=== PATIENT | male | born 1970 | race Caucasian/White ===

== ENCOUNTER 2025-02-11 10:11 | Inpatient (IN) | payer OTHER ==
[2025-02-11] VITALS (8 sets, daily range): BP systolic 122–168; BP diastolic 56–97; TEMP 97.5–98.2; O2SAT 96–99
[~2025-02-11] VITALS: Ht 175.3 cm; Wt 97.0 kg
[2025-02-11 10:48] LABS: BASO # 0.2 10^3/uL (0.0-0.2); BASO % 0.9 % (0.0-1.0); EOS # 0.0 10^3/uL (0.0-0.5); EOS % 0.1 % (0.0-3.0); LYMPH # 1.9 10^3/uL (1.5-5.0); LYMPH % 10.0 % (24.0-44.0); MONO # 0.9 10^3/uL (0.0-0.8); MONO % 4.5 % (2.0-8.0); NEUTROPHILS # 15.6 10^3/uL (1.5-8.5); NEUTROPHILS % 80.6 % (36.0-66.0); PLATELET COUNT, AUTOMATED 361 10^3/uL (150-450)
[2025-02-11 11:04] LABS: CK-MB VALUE MASS 4.8 NG/ML (<3.6)
[2025-02-11 11:07] LABS: ALT/SGPT 21 U/L (7.0-40); AST/SGOT 19 U/L (<34); CALCIUM LEVEL 10.3 MG/DL (8.5-10.1); CARBON DIOXIDE LEVEL < 10.0 MMOL/L (20-31); CHLORIDE LEVEL 99 MMOL/L (98-107); CPK CREATINE PHOSPHOKINASE 110 U/L (46-171); CREATININE FOR GFR 1.24 MG/DL (0.70-1.30); GLOMERULAR FILTRATION RATE 70.0 (>56); MB/CK RELATIVE INDEX 4.36 (< OR =4); POTASSIUM SERUM 4.6 MMOL/L (3.5-5.1); SODIUM LEVEL 138 MMOL/L (136-145)
[2025-02-11] MEDS: NS (Normal Saline) 0.9% 1,000 ML IV ONE (11:28)
[2025-02-11] MEDS: ONDANSETRON 4MG/2ML VIAL IV ONE (11:33)
[2025-02-11 11:43] LABS: VENOUS BASE EXCESS -25.5 (-2.0-2.0); VENOUS HCO3 5.0 MMOL/L (23.0-27.0); VENOUS O2 SATURATION 80.1 % (60.0-80.0); VENOUS PARTIAL PRESSURE CO2 22.0 mmHg (38.0-50.0); VENOUS PARTIAL PRESSURE O2 51.8 mmHg (30.0-50.0); VENOUS PH 6.971 UNITS (7.330-7.430); VENOUS STANDARD HCO3 7.0 MMOL/L; VENOUS TOTAL CO2 5.6 MMOL/L (24.0-28.0)
[2025-02-11 11:53] LABS: ACETONE/KETONE > 4.50 MMOL/L (0.02-0.27)
[2025-02-11] MEDS ORDERED: INSULIN IV RATE CHANGE DOCUMENTATION ML/HR XX SCH (12:10)
[2025-02-11 12:19] LABS: ESTIMATED AVERAGE GLUCOSE 329.0 MG/DL (60-110)
[2025-02-11] MEDS: INSULIN REGULAR IN 0.9 % NACL 100 UNIT in IV 1 EA IV SCH ×2 (12:20→20:04)
[2025-02-11] MEDS ORDERED: KCL 40MEQ IN D5/NS 1000ML 1,000 ML IV SCH (12:50)
[2025-02-11] MEDS: LR 1,000 ML IV ONE (13:38)
[2025-02-11] MEDS: INSULIN IV RATE CHANGE DOCUMENTATION ML/HR XX SCH (13:45)
[2025-02-11] MEDS: ONDANSETRON 4MG/2ML VIAL IV PRN (13:50)
[2025-02-11] MEDS ORDERED: XARE20TA PO (14:09)
[2025-02-11] MEDS ORDERED: ERGO500029 PO (14:09)
[2025-02-11] MEDS ORDERED: METF10004 PO (14:09)
[2025-02-11] MEDS ORDERED: ATOR40TA75 PO (14:09)
[2025-02-11] MEDS ORDERED: BUPR-766 PO (14:09)
[2025-02-11] MEDS ORDERED: EZET10TA57 PO (14:09)
[2025-02-11] MEDS ORDERED: JARD1TAB3 PO (14:09)
[2025-02-11] MEDS ORDERED: AMLO1TAB25 PO (14:09)
[2025-02-11] MEDS ORDERED: HOME MED LIST COMPLETE! XX SCH (14:15)
[2025-02-11] MEDS: KCL 40MEQ IN D5/NS 1000ML 1,000 ML IV SCH (14:57)
[2025-02-11] MEDS: ACETAMINOPHEN *IV* 1,000 MG in IV 1 EA IV ONE (15:14)
[2025-02-11 16:52] LABS: CALCIUM LEVEL 8.5 MG/DL (8.5-10.1); CARBON DIOXIDE LEVEL < 10.0 MMOL/L (20-31); CHLORIDE LEVEL 110 MMOL/L (98-107); CHOLESTEROL LEVEL 271 MG/DL (<200); CHOLESTEROL RISK RATIO 5.42 (<5); CREATININE FOR GFR 0.99 MG/DL (0.70-1.30); GLOMERULAR FILTRATION RATE > 90.0 (>56); LDL CHOLESTEROL 197.2 MG/DL (<100); MAGNESIUM LEVEL 2.2 MG/DL (1.8-2.4); NON-HDL-C 221.0 MG/DL; PHOSPHORUS LEVEL 4.1 MG/DL (2.5-4.9); POTASSIUM SERUM 4.6 MMOL/L (3.5-5.1); SODIUM LEVEL 142 MMOL/L (136-145); TRIGLYCERIDES LEVEL 119 MG/DL (<150)
[2025-02-11 20:52] LABS: CALCIUM LEVEL 8.6 MG/DL (8.5-10.1); CARBON DIOXIDE LEVEL 11 MMOL/L (20-31); CHLORIDE LEVEL 116 MMOL/L (98-107); CREATININE FOR GFR 0.89 MG/DL (0.70-1.30); GLOMERULAR FILTRATION RATE > 90.0 (>56); POTASSIUM SERUM 5.3 MMOL/L (3.5-5.1); SODIUM LEVEL 144 MMOL/L (136-145)
[2025-02-11] MEDS: D5W 1,000 ML IV SCH (21:33)
[2025-02-11] MEDS: MAGIC MOUTHWASH 5 ML ORAL SYRINGE SSP PRN (22:09)
[2025-02-12] VITALS (14 sets, daily range): BP systolic 136–167; BP diastolic 78–99; TEMP 98–98.5; O2SAT 95–99
[2025-02-12 00:43] LABS: CALCIUM LEVEL 8.7 MG/DL (8.5-10.1); CARBON DIOXIDE LEVEL 13 MMOL/L (20-31); CHLORIDE LEVEL 115 MMOL/L (98-107); CREATININE FOR GFR 0.85 MG/DL (0.70-1.30); GLOMERULAR FILTRATION RATE > 90.0 (>56); PHOSPHORUS LEVEL 2.1 MG/DL (2.5-4.9); POTASSIUM SERUM 4.5 MMOL/L (3.5-5.1); SODIUM LEVEL 145 MMOL/L (136-145)
[2025-02-12] MEDS: KCL 40MEQ IN D5/NS 1000ML 1,000 ML IV SCH (01:23)
[2025-02-12 04:36] LABS: BASO # 0.0 10^3/uL (0.0-0.2); BASO % 0.2 % (0.0-1.0); EOS # 0.0 10^3/uL (0.0-0.5); EOS % 0.1 % (0.0-3.0); LYMPH # 1.6 10^3/uL (1.5-5.0); LYMPH % 9.3 % (24.0-44.0); MONO # 2.2 10^3/uL (0.0-0.8); MONO % 12.3 % (2.0-8.0); NEUTROPHILS # 13.4 10^3/uL (1.5-8.5); NEUTROPHILS % 76.8 % (36.0-66.0); PLATELET COUNT, AUTOMATED 272 10^3/uL (150-450)
[2025-02-12 05:01] LABS: CALCIUM LEVEL 8.7 MG/DL (8.5-10.1); CARBON DIOXIDE LEVEL 18 MMOL/L (20-31); CHLORIDE LEVEL 114 MMOL/L (98-107); CREATININE FOR GFR 0.93 MG/DL (0.70-1.30); GLOMERULAR FILTRATION RATE > 90.0 (>56); POTASSIUM SERUM 4.5 MMOL/L (3.5-5.1); SODIUM LEVEL 146 MMOL/L (136-145)
[2025-02-12] MEDS: PANTOPRAZOLE 40MG VIAL IV SCH (08:51)
[2025-02-12 09:57] LABS: ALT/SGPT 16 U/L (7.0-40); AST/SGOT 15 U/L (<34); CALCIUM LEVEL 8.6 MG/DL (8.5-10.1); CARBON DIOXIDE LEVEL 18 MMOL/L (20-31); CHLORIDE LEVEL 115 MMOL/L (98-107); CREATININE FOR GFR 0.79 MG/DL (0.70-1.30); GLOMERULAR FILTRATION RATE > 90.0 (>56); PHOSPHORUS LEVEL 1.5 MG/DL (2.5-4.9); POTASSIUM SERUM 4.4 MMOL/L (3.5-5.1); SODIUM LEVEL 145 MMOL/L (136-145)
[2025-02-12] MEDS ORDERED: GLUCOSE 4 GM CHEW PO PRN (10:15)
[2025-02-12] MEDS ORDERED: GLUCAGON INJ 1 MG VIAL SC PRN (10:15)
[2025-02-12] MEDS ORDERED: DEXTROSE 50% 50 ML SYRINGE IV PRN (10:15)
[2025-02-12] MEDS: LanTUS (INSULIN GLARGINE INJ) 1 UNITS/0.01 ML SC SCH (10:25)
[2025-02-12] MEDS: buPROPion **XL** 150 MG TABLET PO SCH (11:04)
[2025-02-12] MEDS: ATORVASTATIN 20 MG TAB PO SCH (11:04)
[2025-02-12] MEDS: SODIUM BICARBONATE 325 MG TAB PO SCH (11:04)
[2025-02-12] MEDS: RIVAROXABAN 20MG TAB PO SCH (11:05)
[2025-02-12] MEDS: EZETIMIBE 10 MG TABLET PO SCH (11:05)
[2025-02-12] MEDS: INSULIN LISPRO (NovoLOG) PER UNIT SC SCH ×2 (11:15→17:45)
[2025-02-12] MEDS ORDERED: POTASSIUM PHOSPHATE INJ 30 MMOL in D5W 500 ML IV ONE (12:00)
[2025-02-12] MEDS: SODIUM PHOSPHATE INJ 30 MMOL in D5W 500 ML IV ONE (12:35)
[2025-02-12 14:46] LABS: ALT/SGPT 16 U/L (7.0-40); AST/SGOT 18 U/L (<34); CALCIUM LEVEL 8.6 MG/DL (8.5-10.1); CARBON DIOXIDE LEVEL 14 MMOL/L (20-31); CHLORIDE LEVEL 115 MMOL/L (98-107); CREATININE FOR GFR 0.73 MG/DL (0.70-1.30); GLOMERULAR FILTRATION RATE > 90.0 (>56); MAGNESIUM LEVEL 2.1 MG/DL (1.8-2.4); PHOSPHORUS LEVEL 1.7 MG/DL (2.5-4.9); POTASSIUM SERUM 4.7 MMOL/L (3.5-5.1); SODIUM LEVEL 145 MMOL/L (136-145)
[2025-02-12 17:12] LABS: CALCIUM LEVEL 8.6 MG/DL (8.5-10.1); CARBON DIOXIDE LEVEL 16 MMOL/L (20-31); CHLORIDE LEVEL 112 MMOL/L (98-107); CREATININE FOR GFR 0.78 MG/DL (0.70-1.30); GLOMERULAR FILTRATION RATE > 90.0 (>56); MAGNESIUM LEVEL 1.9 MG/DL (1.8-2.4); PHOSPHORUS LEVEL 3.1 MG/DL (2.5-4.9); POTASSIUM SERUM 4.1 MMOL/L (3.5-5.1); SODIUM LEVEL 143 MMOL/L (136-145)
[2025-02-12] MEDS: metFORMIN 500 MG TAB PO SCH (17:44)
[2025-02-12] MEDS: NEUTRA-PHOS 1.5 GM PACKET PO SCH (17:45)
[2025-02-12 18:49] LABS: KETONE, URINE AUTO RFX 1+ mg/dL (NEGATIVE); LEUKOCYTE ESTERASE UR AUTO RFX NEGATIVE (NEGATIVE); MUCUS, URINE RFX SMALL (NEGATIVE); NITRITE, URINE AUTO RFX NEGATIVE (NEGATIVE); RBC, URINE AUTO RFX 5 /HPF (0-3); SQUAM EPITHELIAL CELL UR AURFX 0 /HPF (0-6); WBC, URINE AUTO RFX 1 /HPF (0-3)
[2025-02-12] MEDS: amLODIPine 5 MG TAB PO SCH (20:44)
[2025-02-12] MEDS ORDERED: INSULIN LISPRO (NovoLOG) PER UNIT SC SCH (21:00)
[2025-02-13 04:28] VITALS: BP 156/87; TEMP 98.8; O2SAT 97
[2025-02-13 05:39] LABS: BASO # 0.0 10^3/uL (0.0-0.2); BASO % 0.4 % (0.0-1.0); EOS # 0.1 10^3/uL (0.0-0.5); EOS % 0.7 % (0.0-3.0); LYMPH # 2.0 10^3/uL (1.5-5.0); LYMPH % 18.4 % (24.0-44.0); MONO # 1.0 10^3/uL (0.0-0.8); MONO % 9.6 % (2.0-8.0); NEUTROPHILS # 7.6 10^3/uL (1.5-8.5); NEUTROPHILS % 70.3 % (36.0-66.0); PLATELET COUNT, AUTOMATED 237 10^3/uL (150-450)
[2025-02-13 06:06] LABS: ALT/SGPT 15 U/L (7.0-40); AST/SGOT 14 U/L (<34); CALCIUM LEVEL 8.7 MG/DL (8.5-10.1); CARBON DIOXIDE LEVEL 21 MMOL/L (20-31); CHLORIDE LEVEL 107 MMOL/L (98-107); CREATININE FOR GFR 0.81 MG/DL (0.70-1.30); GLOMERULAR FILTRATION RATE > 90.0 (>56); MAGNESIUM LEVEL 1.8 MG/DL (1.8-2.4); POTASSIUM SERUM 3.7 MMOL/L (3.5-5.1); SODIUM LEVEL 143 MMOL/L (136-145)
[2025-02-13 08:00] VITALS: BP 161/88; TEMP 98.5; O2SAT 97
[2025-02-13 08:56] VITALS: BP 161/88
[2025-02-13] MEDS: amLODIPine 5 MG TAB PO SCH (08:56)
[2025-02-13] MEDS: LanTUS (INSULIN GLARGINE INJ) 1 UNITS/0.01 ML SC SCH (08:57)
[2025-02-13 09:44] VITALS: BP 149/86
[2025-02-13] MEDS ORDERED: PEN-308 SC (11:54)
[2025-02-13] MEDS ORDERED: BLOOKIT21 XX (11:54)
[2025-02-13] MEDS ORDERED: LANC30MI XX (11:54)
[2025-02-13] MEDS ORDERED: ALCOPAD25 TOP (11:54)
[2025-02-13] MEDS ORDERED: AMLO1TAB25 PO (11:54)
[2025-02-13] MEDS ORDERED: GLUC1TES2 XX (11:54)
[2025-02-13] MEDS ORDERED: LANTINJ4 SC (11:54)
[2025-02-13] MEDS ORDERED: ATOR40TA75 PO (11:54)
[2025-02-13 12:00] VITALS: BP 150/86; TEMP 98.8; O2SAT 96
[2025-02-16] MEDS ORDERED: VITAMIN D 50,000 UNITS CAPSULE (ERGOCALCIFEROL 1.25MG) PO SCH (09:00)
== END 2025-02-13 16:06 | disposition home or self-care (01) | DRG 638 ==
LOC: M ED 10:11 → M ED INP 12:44 → M ICU 13:26
PROVIDERS: ADMIT Internal Medicine Pulmonary Disease; ATTEND Internal Medicine
DX: E11.10 Type 2 diabetes mellitus with ketoacidosis without coma (principal); D68.51 Activated protein C resistance; I10 Essential (primary) hypertension; E11.65 Type 2 diabetes mellitus with hyperglycemia; E87.5 Hyperkalemia; D72.829 Elevated white blood cell count, unspecified; E55.9 Vitamin D deficiency, unspecified; F39 Unspecified mood [affective] disorder; E83.39 Other disorders of phosphorus metabolism; Z91.119 Patient's noncompliance with dietary regimen due to unspecified reason; Z79.899 Other long term (current) drug therapy; Z79.01 Long term (current) use of anticoagulants; Z86.718 Personal history of other venous thrombosis and embolism